=== PATIENT | female | born 1970 | race Caucasian/White ===

== ENCOUNTER 2019-03-31 16:54 | Emergency (ER) | payer BC ==
[2019-03-31] MEDS ORDERED: Ondansetron PF 4 MG/2 ML Vial ONE (18:07)
[2019-03-31] MEDS ORDERED: Morphine 4 MG/ML VIAL ONE (18:07)
[2019-03-31 18:13] LABS: #Basophils 0.1 thou/uL (0.0-0.2); #Eosinphils 0.1 thou/uL (0.0-0.7); #Lymphocytes 2.5 thou/uL (1.20-3.40); #Monocytes 0.9 thou/uL (0.11-0.59); #Neutrophils 9.4 thou/uL (1.40-6.50); %Basophils 0.6 % (0.0-1.0); %Eosinophils 0.8 % (0.0-10.0); %Monocytes 6.7 % (0.0-10.0); %Neutrophils 72.9 % (42.0-75.0); Hemoglobin 13.1 g/dL (12.0-16.0); Mean Corpuscular HGB CONC 32.6 g/dL (32.0-36.0); Mean Corpuscular Hemoglobin 27.1 pg (27.0-31.0); Mean Platelet Volume 8.2 fL (7.4-10.4); Platelet Count 294 thou/uL (130-400); RBC Distribution Width 13.7 % (11.5-14.5); Red Blood Cell (RBC) Count 4.84 mill/uL (4.20-5.40); White Blood Cell (WBC) Count 12.9 thou/uL (4.8-10.8)
[2019-03-31 18:20] LABS: BHCG - Serum Negative (NEGATIVE); Pregs Control Background? CLEAR/WHITE (CLR/WHITE); Pregs Control Bar Appear? YES (CONTROL BAR)
[2019-03-31 18:50] LABS: ALT (SGPT) 20 U/L (8-55); AST (SGOT) 22 U/L (5-34); Albumin 4.1 g/dL (3.5-5.0); Alkaline Phosphatase 95 U/L (40-110); Anion Gap 17 mmol/L (10-20); BUN (Urea Nitrogen) 21 mg/dL (7.0-18.7); Bilirubin, Total 0.2 mg/dL (0.2-1.2); Calc. Creatinine Clearance 0 mL/min (70-130); Calcium 9.3 mg/dL (7.8-10.44); Carbon Dioxide 21 mmol/L (22-29); Chloride 105 mmol/L (98-107); Estimated GFR-MDRD 73; Globulin 3.2 g/dL (2.4-3.5); Glucose 156 mg/dL (70-105); Lipase 16 U/L (8-78); Potassium 4.6 mmol/L (3.5-5.1); Protein, Total 7.3 g/dL (6.0-8.3); Sodium 138 mmol/L (136-145)
[2019-03-31 19:09] LABS: Bilirubin Negative (Negative); Blood, Urine Trace (Negative); Glucose, Urine (Dipstick) Negative (Negative); Leukocyte Negative (Negative); Nitrite Negative (Negative); Protein, Urine (Dipstick) Negative (Neg-Trace); Urobilinogen 0.2 mg/dL (Less than 2)
[2019-03-31 19:14] LABS: Clarity Opaque (Clear)
--- NOTE | 2019-03-31 19:20 | CT ---
CT OF ABDOMEN AND PELVIS PERFORMED WITHOUT CONTRAST ENHANCEMENT: 03/31/19 HISTORY: Left sided abdominal pain. The lung bases are clear. The liver, spleen, pancreas, and gallbladder regions appear unremarkable given the limitations of a n oncontrast study. Right and left adrenal glands and right and left kidneys are normal in size. There are no renal calcu li demonstrated. There is a punctate left ureterovesical junction calculus associated with minimal di latation of the left collecting system and ureter. This is better seen on the coronal images. There i s no significant periaortic or mesenteric lymphadenopathy noted. The appendix is normal in size and a ppearance. No pelvic fluid collections seen. IMPRESSION: Punctate left ureterovesical junction calculus associated with minimal dilatation of the left collect ing system and ureter. POS: RASHIDA
[2019-03-31 19:22] LABS: Bacteria/HPF None Seen HPF (None Seen); Calcium Oxalate Crystals 2+ HPF (None Seen); RBC/HPF 0-3 HPF (0-3); Squamous Epithelial 0-3 HPF (0-3); WBC/HPF 0-3 HPF (0-3)
[2019-03-31] MEDS ORDERED: Ketorolac Tromethamine 30 MG/ML VIAL ONE (19:34)
== END 2019-03-31 20:21 | disposition home or self-care (01) ==
LOC: ERS 16:54
DX: N20.0 Calculus of kidney (principal); E78.5 Hyperlipidemia, unspecified; E78.00 Pure hypercholesterolemia, unspecified; Z79.899 Other long term (current) drug therapy
CPT/HCPCS: 74176; 80053; 81003; 81015; 83690; 84703; 85025; 96361; 96374; 96375; J1885; J2270; J2405

== ENCOUNTER 2019-06-26 06:01 | Day surgery (SDC) | payer BC ==
--- NOTE | 2019-06-22 14:50 | HP ---
Date of planned surgery will be 06/26/2019. HISTORY OF PRESENT ILLNESS: Ms. Shin is a 49-year-old woman, who has been having some issues with postmenopausal bleeding. She had an FSH confirming menopause with prior bleeding for approximately 2 years when she started onset of vaginal bleeding. She had an endometrial biopsy at that time, which was benign in January 2019, but she did have a thickened endometrial lining of 25 mm suggesting a possible polyp. She was initially recommended to get a diagnostic hysteroscopy with D and C. She was going to proceed with this, but then declined and wanted to proceed with definitive surgical therapy and therefore hysterectomy was desired. PAST MEDICAL HISTORY: For hypothyroidism and type 2 diabetes. PAST SURGICAL HISTORY: Neck surgery in the past. CURRENT MEDICATIONS: 1. Gabapentin 30 mg tablet daily. 2. Levothyroxine 88 mcg tablet daily. 3. Metformin 500 mg tablet b.i.d. ALLERGIES: SHE HAS NO KNOWN DRUG ALLERGIES. SOCIAL HISTORY: Negative for smoking. No excessive alcohol use. GYNECOLOGICAL HISTORY: Pap smear and HPV testing were negative in November of 2016. PHYSICAL EXAMINATION: VITAL SIGNS: The patient is 5 feet 1 inch, 155 pounds, BMI 29.3. Blood pressure 120/78, pulse 84 and regular, and O2 saturation on room air 97%. HEENT: Within normal limits. CHEST: Clear to auscultation. HEART: Regular rate and rhythm. S1 and S2 heart sounds. No murmurs, rubs, or gallops. ABDOMEN: Soft, nontender, and nondistended with no palpable masses. PELVIC: Vulva and vagina had no lesions. Cervix had no lesions. Uterus was small, nontender. Adnexa, nontender with no masses. On endometrial biopsy, the uterus sounded to 7 cm. Ultrasound of the uterus and pelvis and ovaries on March 07, 2019, showed the uterus measuring 7.9 x 4.4 x 4 cm. Right and left ovary normal in appearance. Endometrial lining was thickened approximately 25 mm. ASSESSMENT: This is a 49-year-old female, who is postmenopausal with onset of postmenopausal bleeding with thickened endometrial lining with benign biopsy. Possibilities include uterine polyp versus an early malignancy versus perimenopausal bleeding. The patient is desiring definitive surgical therapy and removal of the uterus. PLAN: To proceed with a robotic total laparoscopic hysterectomy and bilateral salpingo-oophorectomy on 06/26/2019. Risks and benefits of the procedure have been discussed in detail, she is set for surgery. Job ID: [id number]
[2019-06-23 08:52] VITALS: BMI 30.2
[2019-06-23 09:25] LABS: Hemoglobin 14.3 g/dL (12.0-16.0); Mean Corpuscular HGB CONC 32.7 g/dL (32.0-36.0); Mean Corpuscular Hemoglobin 26.7 pg (27.0-31.0); Mean Corpuscular Volume 81.8 fL (78.0-98.0); Mean Platelet Volume 7.5 fL (7.4-10.4); Platelet Count 328 thou/uL (130-400); RBC Distribution Width 13.8 % (11.5-14.5); Red Blood Cell (RBC) Count 5.35 mill/uL (4.20-5.40); White Blood Cell (WBC) Count 8.5 thou/uL (4.8-10.8)
[2019-06-23 09:46] LABS: Anion Gap 13 mmol/L (10-20); BUN (Urea Nitrogen) 7 mg/dL (7.0-18.7); Calc. Creatinine Clearance 0 mL/min (70-130); Carbon Dioxide 23 mmol/L (22-29); Chloride 106 mmol/L (98-107); Estimated GFR-MDRD Greater than 90; Glucose 125 mg/dL (70-105); Potassium 4.4 mmol/L (3.5-5.1); Sodium 138 mmol/L (136-145)
[2019-06-26] MEDS ORDERED: Gabapentin 300 MG CAP ONE (06:19)
[2019-06-26] MEDS ORDERED: Famotidine/PF 20 mg/2ml Vial ONE (06:19)
[2019-06-26] MEDS ORDERED: CeleCOXIB 100 MG CAP ONE (06:19)
[2019-06-26] MEDS ORDERED: Bupivacaine PF 0.5% 30 ML VIAL ONE (06:38)
[2019-06-26] MEDS ORDERED: Lidocaine 1% w/Epinephrine 1:100K 20 ML VIAL ONE (06:38)
[2019-06-26] MEDS ORDERED: Fentanyl 250 MCG/5 ML VIAL ONE (07:16)
[2019-06-26] MEDS ORDERED: Midazolam HCl 2 mg/2 ml Vial ONE (07:16)
[2019-06-26] MEDS ORDERED: Ondansetron PF 4 MG/2 ML Vial IVP PRN (09:19)
[2019-06-26] MEDS ORDERED: Bisacodyl 10 MG SUPP PR PRN (09:19)
[2019-06-26] MEDS ORDERED: Morphine 4 MG/ML VIAL SLOW IVP PRN (09:19)
[2019-06-26] MEDS ORDERED: Zolpidem Tartrate 5 MG TAB PO PRN (09:19)
[2019-06-26] MEDS ORDERED: Simethicone Chewable 80 MG TAB PO PRN (09:19)
[2019-06-26] MEDS ORDERED: Promethazine HCl 25 MG/ML VIAL IM PRN (09:19)
[2019-06-26] MEDS ORDERED: diphenhydrAMINE 25 MG CAP PO PRN (09:19)
[2019-06-26] MEDS ORDERED: HYDROcodone/Acetaminophen 5/325 mg Tablet PO PRN ×2 (09:19)
[2019-06-26] MEDS ORDERED: Fentanyl 100 MCG/2 ML VIAL ONE ×2 (09:54→10:23)
[2019-06-26] MEDS ORDERED: Rocuronium Bromide 10 MG/ML (10ML VIAL) ONE (10:10)
[2019-06-26] MEDS ORDERED: Ondansetron PF 4 MG/2 ML Vial ONE (10:10)
[2019-06-26] MEDS ORDERED: Lidocaine 1% PF 5 ML VIAL ONE (10:10)
[2019-06-26] MEDS ORDERED: Dexamethasone 20 MG/5 ML VIAL ONE (10:10)
[2019-06-26] MEDS ORDERED: PROPOFOL 200 MG/20 ML VIAL ONE (10:10)
[2019-06-26] MEDS ORDERED: Glycopyrrolate 0.2 MG/ML 5 ML SYRINGE ONE (10:10)
--- NOTE | 2019-06-26 11:27 | OP ---
DATE OF PROCEDURE: 06/26/2019 PREOPERATIVE DIAGNOSES: 1. A 49-year-old female with onset of postmenopausal bleeding. 2. Endometrial biopsy was benign with thickened endometrial lining, most consistent with endometrial polyp. 3. The patient desires definitive surgical therapy. POSTOPERATIVE DIAGNOSES: 1. A 49-year-old female with onset of postmenopausal bleeding. 2. Endometrial biopsy was benign with thickened endometrial lining, most consistent with endometrial polyp. 3. The patient desires definitive surgical therapy. PROCEDURES PERFORMED: Robotic total laparoscopic hysterectomy with bilateral salpingo-oophorectomy. MONITORING ANALYST SURGEON: Krysten Diamond PA-C ANESTHESIA: General endotracheal. ESTIMATED BLOOD LOSS: 25 mL. COMPLICATIONS: None. COUNTS: Correct x2. ANTIBIOTICS: 2 g Ancef on-call to OR. PATHOLOGY: Uterus, cervix, and bilateral tubes and ovaries. FINDINGS: 1. Uterus was normal appearing with no obvious external lesions seen. 2. Bilateral ovaries not atretic yet, perimenopausal in appearance. No abnormal fallopian tube findings. 3. Left fallopian tube was somewhat adherent to the appendices epiploicae of the sigmoid colon status post lysis of adhesions. 4. Bladder was watertight to fluid distention postprocedure and was draining clear urine. 5. Bilateral ureteral peristalsis was visualized postprocedure and courses of the ureters appeared to be below the operative sites down the pelvic sidewall. DISPOSITION: Recovery room stable. DESCRIPTION OF PROCEDURE: The patient previously received informed consent in regard to surgery. She was taken back to the operating room, where she received a general endotracheal anesthetic agent without complications. She was placed in a dorsal lithotomy position and prepped and draped in usual sterile fashion with the use of Jonathan stirrups. A Mathis catheter was placed and I placed a side-arm speculum in the vagina. The anterior lip of cervix was grasped with single-tooth tenaculum. The uterus sounded to 7.5 cm. A size 6 cm NABEEL uterine manipulator with a 3.5 cm cervical cup was selected and placed. Tenaculum and speculum then removed. Attention was then turned to the abdomen, where perspective trocar sites were infiltrated with 0.5% Marcaine with epinephrine. A 12 mm supraumbilical incision was made. Veress needle was then placed into the peritoneal cavity. The patient's pressure was noted to be less than 5 mmHg and then, the abdomen was insufflated with the patient's pressure of 15 approximately 4.5 L of carbon dioxide gas. The Veress needle was then removed and a 12 mm trocar was placed. Laparoscope was introduced through the trocar sleeve confirming proper entry. Additional bilateral lower quadrant 8 mm operative trocars were placed along with the right upper quadrant 11 mm nurse practitioner physician assistant port. We then placed the patient in Trendelenburg position and docked the robot in usual fashion. I then broke scrub and took my seat at the operative console while my assistants remained at the bedside. The uterus was elevated from the pelvis. My nurse practitioner physician assistant grasped the fimbria of the left fallopian tube. There was some adherence with the appendices epiploicae of the sigmoid colon and this was a clear plane. No bowel or fallopian tube was dissected with monopolar scissors and retraction until the left IP ligament was freed adequately for me to take the left IP ligament safely away from the colon. Once this was coagulated and transected, serial coagulation of the broad ligament hugging close to uterus was carried out until the left round ligament was really reached. It was coagulated and transected. The anterior leaf of the broad ligament was then opened, dissecting the vesicouterine peritoneum in a layering technique, past the cervical vaginal margin that was delineated by the cervical cup from the uterine manipulator. The uterine vessels were skeletonized, also on the left side, both anterior and posterior leaf and these were coagulated in the internal cervical os region. The right fallopian tube again was grasped by my nurse practitioner physician assistant. The right IP ligament was free from the pelvic sidewall. It was coagulated close to the ovary and transected with monopolar scissors. Serial coagulation in the broad ligament again was carried down to the right round ligament was reached. It was transected and remaining in the vesicouterine peritoneum was incised in a layering technique and dropped, past the cervical vaginal margin. Again, the right uterine vessels were skeletonized and coagulated in the internal cervical os region. The uterus was flipped forward and the posterior colpotomy was easily made at this time from 6 to 4 and 6 to 8 o'clock. I then completed the anterior colpotomy starting from before I distended the bladder and it was noted to be watertight intact and the bladder was well below the anterior colpotomy anticipated incision site. I then made the anterior colpotomy from 12 to 3 and 12 to 9 o'clock position. The uterine vessels at the 3 o'clock and 9 o'clock position were further cauterized just inside the NABEEL uterine manipulator cup to secure hemostasis. Then, the transection of these were completed and the specimen was delivered into the vaginal vault. My nurse practitioner physician assistant switched out the monopolar scissor with a Fredis needle driver/refuse collector. I then grabbed the cuff. There was some bleeding on the left vessel site just inside the vaginal cuff at 9 o'clock and this was further cauterized for hemostasis. Additional cautery in the posterior vaginal cuff was made for hemostasis. My nurse practitioner physician assistant then brought in a Stratafix suture. I closed the vaginal cuff in full-thickness closure starting in the right vaginal angle across the vaginal cuff to the left vaginal angle and then, back towards the midline of the cuff. The excess suture and needle were then cut and they were removed in the right upper quadrant nurse practitioner physician assistant port. The vaginal cuff appeared hemostatic. The courses of the ureters were again rechecked. The right ureter was seen easily. Peristalsis seen, and this course was deep in the pelvis below the operative pedicle sites. The left ureter, there was some tenting of the peritoneum from the colon adhesions and these were released somewhat and then, after we manipulated the bowel from the lower left pelvic sidewall, I was able to see the ureter peristalsis below the tented peritoneum deep in the pelvis on the left pelvic sidewall and the course of the ureter appeared to be below the operative pedicle sites. Clear urine was noted to be draining from the Mathis catheter. The excess carbon dioxide gas had been released from the abdomen and the robot was then undocked. I rescrubbed in and then closed the fascial defect in the supraumbilical area with a [id number] suture of 0 Vicryl suture. The remainder of the trocar sites were closed in the skin with Monocryl subcuticular 4-0 suture and Dermabond. The vaginal check was performed with a sponge stick and hemostasis of the vaginal cuff, vaginally it was confirmed. The patient was awakened from anesthesia and transferred to recovery room in stable condition. Job ID: [id number]
[2019-06-26] MEDS: Sodium Chloride 0.9% 1,000 ML IV SCH ×2 (12:10→21:07)
[2019-06-26] MEDS: Ketorolac Tromethamine 30 MG/ML VIAL IVP SCH ×3 (12:11→23:41)
[2019-06-27] MEDS: Sodium Chloride 0.9% 1,000 ML IV SCH (02:20)
[2019-06-27] MEDS ORDERED: Ibuprofen 800 MG TAB PO SCH (06:00)
[2019-06-27] MEDS ORDERED: Levothyroxine Sodium 88 MCG TAB PO SCH (06:00)
[2019-06-27 06:24] LABS: Hemoglobin 12.5 g/dL (12.0-16.0); Mean Corpuscular HGB CONC 32.4 g/dL (32.0-36.0); Mean Corpuscular Hemoglobin 26.2 pg (27.0-31.0); Mean Corpuscular Volume 80.8 fL (78.0-98.0); Platelet Count 284 thou/uL (130-400); RBC Distribution Width 13.7 % (11.5-14.5); Red Blood Cell (RBC) Count 4.77 mill/uL (4.20-5.40); White Blood Cell (WBC) Count 16.4 thou/uL (4.8-10.8)
[2019-06-27 06:46] LABS: Anion Gap 10 mmol/L (10-20); BUN (Urea Nitrogen) 13 mg/dL (7.0-18.7); Calc. Creatinine Clearance 115 mL/min (70-130); Calcium 8.5 mg/dL (7.8-10.44); Carbon Dioxide 26 mmol/L (22-29); Chloride 104 mmol/L (98-107); Estimated GFR-MDRD Greater than 90; Glucose 132 mg/dL (70-105); Potassium 4.3 mmol/L (3.5-5.1); Sodium 136 mmol/L (136-145)
[2019-06-27 08:03] VITALS: BP 123/69; TEMP 98.2
--- NOTE | 2019-06-27 08:07 | PDOC.EVN ---
Event Note - Event Note Event Note: S: Tolerating diet. Good pain control.. Voiding. Ambulating. O:AFVSS. HCT 38.6. GlucoSe 132. cR 0.67. U/O >2000ML abd SOFT/ NON DISTENDED. TROCHAR SITES INTACT. A/P:POST OP DAY 1 FROM ROBOTIC TLH/BSO. DOING WELL. D/C HOME. F/U2 AND 6 WEEKS.
--- NOTE | 2019-06-28 03:27 | DIS ---
DATE OF ADMISSION: 06/26/2019 DATE OF DISCHARGE: 06/27/2019 DIAGNOSES: 1. Postmenopausal bleeding. 2. Menorrhagia. PROCEDURE PERFORMED: Robotic TLH-BSO. SUMMARY OF HOSPITAL COURSE: Ms. Shin is a 49-year-old female who has been having no menstrual cycles for several years with the onset of bleeding most recently the past several months. She had a thickened endometrial lining of 25 mm, possibly endometrial polyps. Biopsy of the area showed benign proliferative tissue. She was offered hysteroscopy D and C, but decided to proceed with definitive surgical therapy. She underwent a robotic TLH-BSO on 06/26/2019. Her hospital course has been unremarkable. She is ambulating, voiding without difficulty on postop day zero in the evening. Vital signs remained stable. Her hematocrit on postop day #1 is 38%. Urine output has been excellent over 2 L. Her glucose is 132, creatinine 0.67. Her pain control has been adequate on oral medications. Pathology is pending at the time of discharge. She will have a prescription for [place] 5 mg q.6 hours p.r.n. pain, [id number]-cwi-aerensu ibuprofen as directed and follow up in 2 and 6 weeks. Job ID: [id number]
== END 2019-06-27 12:40 | disposition home or self-care (01) ==
LOC: SDC 06:01 → 3SE 11:07 → UNDOADMOB 11:07 → UNDODISOB 06-27 10:45 → SDC 06-27 12:40
PROVIDERS: ATTEND Obstetrics & Gynecology
PROC: 0UT74ZZ Resection of Bilateral Fallopian Tubes, Percutaneous Endoscopic Approach (ICD-10-PCS; principal; 2019-06-26)
PROC: 0UT94ZZ Resection of Uterus, Percutaneous Endoscopic Approach (ICD-10-PCS; principal; 2019-06-26)
PROC: 0UT24ZZ Resection of Bilateral Ovaries, Percutaneous Endoscopic Approach (ICD-10-PCS; principal; 2019-06-26)
DX: D25.0 Submucous leiomyoma of uterus (principal); D25.1 Intramural leiomyoma of uterus; N84.0 Polyp of corpus uteri; N80.0 Endometriosis of uterus; N70.11 Chronic salpingitis; N72 Inflammatory disease of cervix uteri; N83.8 Other noninflammatory disorders of ovary, fallopian tube and broad ligament; E11.9 Type 2 diabetes mellitus without complications; E03.9 Hypothyroidism, unspecified; Z79.84 Long term (current) use of oral hypoglycemic drugs; Z79.899 Other long term (current) drug therapy
CPT/HCPCS: 36415; 80048; 85027; 86850; 86900; 86901; 88307; J0690; J1100; J1885; J2001; J2250; J2405; J2704; J3010; S0020; S0028

== ENCOUNTER 2021-11-14 08:40 | Outpatient (CLI) | payer BC | END 2021-11-14 08:41 | disposition home or self-care (01) | LOC: RAD 08:40 | PROVIDERS: ATTEND Nurse Practitioner Family | DX: M47.812 Spondylosis without myelopathy or radiculopathy, cervical region (principal); M47.813 Spondylosis without myelopathy or radiculopathy, cervicothoracic region; M43.13 Spondylolisthesis, cervicothoracic region; Z98.890 Other specified postprocedural states; Z98.1 Arthrodesis status | CPT/HCPCS: 72040 ==